=== PATIENT | female | born 2000 | race Caucasian/White ===

== ENCOUNTER 2018-08-30 10:19 | Emergency (ER) | payer BC ==
[~2018-08-30] VITALS: Ht 160 cm; Wt 57.2 kg
--- NOTE | 2018-08-30 10:48 | NUR ---
Assumed care of patient. C/O right flank pain, urinary urgency/frequency and painful urination. Urine clear yellow. Hx of frequent UTIs as child and ureter surgery for urine reflux condition at age 6. Father at bedside. Will continue to monitor.
[2018-08-30 11:02] LABS: MICROSCOPIC AUTO
[2018-08-30 11:03] LABS: CULTURE INDICATED? YES
[2018-08-30 11:38] LABS: BASOPHILS # (AUTO) 0.02 x10^3/uL (0-0.3); BASOPHILS % (AUTO) 0 % (0-1); EOSINOPHILS # (AUTO) 0.04 x10^3/uL (0-0.8); EOSINOPHILS % (AUTO) 0 % (1-7); LYMPHOCYTES # (AUTO) 0.91 x10^3/uL (1-6.1); LYMPHOCYTES % (AUTO) 7 % (22-44); MD NO; MEAN CORPUSCULAR HEMOGLOBIN 33.7 pg (27.0-34.8); MEAN CORPUSCULAR HGB CONC 33.8 g/dL (32.4-35.8); MEAN CORPUSCULAR VOLUME 99.9 fL (80-100); MEAN PLATELET VOLUME 9.3 fL (7.4-10.4); MONOCYTES # (AUTO) 0.93 x10^3/uL (0-1.4); MONOCYTES % (AUTO) 7 % (2-9); NEUTROPHILS # (AUTO) 11.41 x10^3/uL (1.8-8.0); NEUTROPHILS % (AUTO) 86 % (42-75); PLATELET COUNT 218 x10^3/uL (130-400); RED BLOOD COUNT 4.42 x10^6/uL (3.82-5.3); RED CELL DISTRIBUTION WIDTH 12.1 % (9.6-15.2)
[2018-08-30 11:51] LABS: ALBUMIN 3.9 g/dL (3.4-5.0); ANION GAP 5 mmol/L (5-15); CALCIUM 8.7 mg/dL (8.5-10.1); CHLORIDE 109 mmol/L (98-107)
[2018-08-30 11:56] LABS: ALANINE AMINOTRANSFERASE 14 U/L (12-78); ALKALINE PHOSPHATASE 80 U/L (45-117); BILIRUBIN,TOTAL 1.3 mg/dL (0.2-1.0); CREATININE 0.83 mg/dL (0.55-1.02); TOTAL PROTEIN 7.2 g/dL (6.4-8.2)
--- NOTE | 2018-08-30 12:02 | NUR ---
US at bedside.
[2018-08-30 12:45] VITALS: BP 109/65
--- NOTE | 2018-08-30 12:45 | NUR ---
Patient/Caregiver given discharge instructions and they have confirmed that they understand the instructions. Patient ambulatory with steady gait.
== END 2018-08-30 13:22 | disposition home or self-care (01) ==
LOC: ED 13:08
DX: N30.00 Acute cystitis without hematuria (principal)
CPT/HCPCS: 36415; 76700; 80053; 81001; 84702; 85025; 87077; 87086; 87186; 99284